=== PATIENT | male | born 1995 | race Caucasian/White ===

== ENCOUNTER 2016-11-19 20:26 | Emergency (ER) | payer SELFPAY ==
--- NOTE | 2016-11-19 21:13 | ED Physician Documentation ---
Sore Throat/Dental Pain - HISTORIAN Historian: patient - HPI Stated Complaint: Dental Pain Chief Complaint: Dental Pain Onset: days ago Context: Dental Caries Further Comments: yes (21 year old male patient presents with right bottom back molar pain.) - ROS CONST: no problems CVS/RESP: none GI/: denies: problems urinating, nausea, vomiting, other MS/SKIN/LYMPH: denies: muscle aches, rash, leg swelling, ankle swelling, other NEURO/PSYCH: none - PAST HX Past History: none Other History: none Allergies/Adverse Reactions: Allergies Allergy/AdvReac Type Severity Reaction Status Date / Time No Known Allergies Allergy Verified 11/19/16 20:44 - SOCIAL HX Smoking History: non-smoker - FAMILY HX Family History: No - VITAL SIGNS Vital Signs: Vital Signs Temp Pulse Resp BP Pulse Ox 98.1 F 96 H 18 130/80 99 11/19/16 20:30 11/19/16 20:30 11/19/16 20:30 11/19/16 20:30 11/19/16 20:30 - REVIEWED ASSESSMENTS Nursing Assessment Reviewed: Yes Vitals Reviewed: Yes Progress - Progress Progress: Free dental clinic numbers provided. Dental Pain Physical Exam - EXAM General Appearance: mild distress Mouth/Throat: lips nml, gums nml, pharynx nml, voice nml, no drooling, no air way problems, no thrush, membranes nml, dental tenderness (#48), other (#48 - decay to gumline, erythema and edema around gums. ) Respiratory: no resp. distress CVS: reg. rate & rhythm Skin: normal color, warm/dry, NR, INT, PAL, DR Neuro/Psych: No: weakness Discharge Clincal Impression: Dental caries Referrals: Daquan Pedersen MD [Primary Care Provider] - 2 Days Additional Instructions: See the dentist as soon as possible. physical therapy supervisor your prescription and start it in the morning. Ibuprofen 800mg (4tabs) every 8 hours as needed for pain Condition: Stable Disposition: 01 HOME, SELF-CARE Decision to Admit: NO Decision Time: 21:10
[2016-11-19 21:20] VITALS: BP 120/68
== END 2016-11-19 21:18 | disposition home or self-care (01) ==
LOC: ED 20:26
DX: K02.9 Dental caries, unspecified (principal)
CPT/HCPCS: 99283

== ENCOUNTER 2019-02-22 02:52 | Emergency (ER) | payer SELFPAY ==
[2019-02-22] MEDS: Lidocaine 1% 5ml 10 MG/ML VIAL IJ ONE (03:15)
--- NOTE | 2019-02-22 03:56 | ED Physician Documentation ---
General Adult - HISTORIAN Historian: patient - HPI Stated Complaint: L EAR LOBE PAIN Chief Complaint: General Adult Onset: other (weeks) Timing: still present Severity: moderate Further Comments: yes (Pt has a swelling at his L ear lobe that has been increasing in size and that is now painful, making it difficult to sleep on the L side.) - ROS CONST: no problems EYES/ENT: other (L ear lobe swelling) GI/: none MS/SKIN/LYMPH: other (L ear lobe swelling) - PAST HX Past History: asthma Allergies/Adverse Reactions: Allergies Allergy/AdvReac Type Severity Reaction Status Date / Time No Known Drug Allergies Allergy Verified 02/22/19 03:04 Home Medications: Ambulatory Orders Medication Instructions Recorded Cephalexin [Keflex] 500 mg PO TID #15 capsule 02/22/19 - SOCIAL HX Smoking History: cigarettes - FAMILY HX Family History: No - VITAL SIGNS Vital Signs: Vital Signs Temp Pulse Resp BP Pulse Ox 98.4 F 82 18 126/92 98 02/22/19 02:52 02/22/19 02:52 02/22/19 02:52 02/22/19 02:52 02/22/19 02:52 - REVIEWED ASSESSMENTS Nursing Assessment Reviewed: Yes Vitals Reviewed: Yes Procedures Site: L ear lobe Blade Size: 11 I & D Procedure: betadine prep, sterile drapes applied Progress: L ear lobe epidermoid cyst removed lidocaine 1% to local area skin over cyst incised with #11 blade attempt to remove cyst without rupturing it, using scalpel and flat prob cyst broke and cystic material expressed much of cyst lining removed with foreceps. unknown if lining entirely removed incision closed with #2 4-0 nylon interrupted sutures Topical abx applied pressure dressing applied to prevent hematoma tracking within external ear (which might lead to cartilege damage). Rx Keflex 500 mg po tid x 5 days. suture removal in 5 days. f/u pcp Progress - Progress Progress: Rx Keflex 500 mg. Take one every 8 hours for 5 days. Follow up for suture removal in 5 days with primary provider. ED Results Lab/Radiology - Orders Orders: ED Orders Category Date Time Status Lidocaine 1% 5ml [Xylocaine] Med 02/22/19 03:15 Discontinued 50 mg IJ NOW ONE Lidocaine 1% 5ml [Xylocaine] 5 ml Med 02/22/19 03:14 Discontinued .ROUTE .STK-MED General Adult Physical Exam - PHYSICAL EXAM GENERAL APPEARANCE: no distress EENT: other (swelling L ear lobe c/w epidermoid cyst) NECK: normal inspection, supple RESPIRATORY: no resp distress, chest non-tender, breath sounds normal CVS: reg rate & rhythm, heart sounds normal BACK: normal inspection SKIN: other (epidermoid cyst L earlobe) EXTREMITIES: non-tender, normal range of motion, no evidence of injury NEURO: oriented X3, motor nml, sensation nml Discharge Clincal Impression: epidermoid cyst L ear lobe, removed Prescriptions: Cephalexin [Keflex] 500 mg PO TID #15 capsule Referrals: Ketty Sebastian MD [Primary Care Provider] - 2 Days Condition: Stable Disposition: 01 HOME, SELF-CARE Decision to Admit: NO Decision Time: 04:15
[2019-02-22] MEDS: Lidocaine 1% 5ml 5 ML ONE (04:01)
[2019-02-22] MEDS: CEPHALEXIN 250 MG CAPSULE PO ONE (04:05)
[2019-02-22 04:14] VITALS: BP 131/60
== END 2019-02-22 04:11 | disposition home or self-care (01) ==
LOC: ED 02:52
DX: L72.3 Sebaceous cyst (principal)
CPT/HCPCS: 10060; 96372; 99283